=== PATIENT | female | born 1960 | race Caucasian/White ===

== ENCOUNTER 2016-07-13 17:03 | Emergency (ER) | payer MEDICARE, MEDICAID ==
[~2016-07-13] VITALS: Ht 175.3 cm; Wt 110.0 kg
[~2016-07-13 17:03] MED LIST: ASP81TEC PO; CALC-323 PO; CETI10CA PO; DOCU-42 PO; DULO60CA42 PO; ERGO500013 PO; FEXO-46 PO; FURO20TA PO; GABA300C PO; GABA300C6 PO; HYDR1TAB91 PO; INSLEVPEN SUBQ; INSU100I SUBQ; INSU100I12 SQ; KETO15CR TOP; LORA-303 PO; LURA40TA PO; METF-488 PO; NORT50CA PO; OMEP20TA86 PO; POTA10TA12 PO; PRE20 PO; REM15 PO; TPR100T PO; ZOC20 PO; [UNRECOGNIZED DRUG - CODE] IH
[2016-07-13 17:10] VITALS: BP 109/79; PULSE 94; RESP 16; O2SAT 94
--- NOTE | 2016-07-13 18:37 | ED.REPORT ---
HPI-Abd Pain F 40 and Over Date of Service Jul 13, 2016 ED Provider: Chris Medel DO Patient is a 56 year old female with a history of multiple sclerosis, COPD on home O2, diabetes mellitus with neuropathy, hypertension, kidney stones, and recurrent UTIs who presents to the ED complaining of left sided back pain that began this morning. The patient states that the pain radiates to her lower abdomen. Patient also reports that her legs are numb, tingling, and "feel like rubber". She is unsure if this is due to her neuropathy or MS. Patient states that she incontinent of urine in the ED, stating that she wears diapers. Patient presented to the ED from Urgent Care this morning due to concern for pyelonephritis. However, the patient left the ED after providing a urine sample because she needed to feed her dogs. She was contacted by RUDDY Avery and told to present to the ED due to possible pyelonephritis, as her urine was positive for a UTI. Patient has been on antibiotics for the past 2 weeks for an ongoing bladder infection. She reports mild diarrhea but denies nausea, vomiting, dysuria, fever, or chills. Nursing Notes Stated Complaint: ABDOMINAL PAIN Chief Complaint: Female Abdominal Pain Nursing Notes Reviewed: Yes Allergies: Coded Allergies: quetiapine (Verified Allergy, Unknown, 03/12/14) zolpidem tartrate (Verified Allergy, Unknown, 03/12/14) per pt report Scheduled Aspirin-Expunged Drug, Do Not Renew! (Aspirin EC-Expunged Drug, Do Not Renew!) 81 Mg Tablet 81 MG PO DAILY DO NOT CRUSH Calcium Carbonate/D3-Expunged, Do Not Renew! (Oyster Shell 500 Mg/D-Expunged, Do Not Renew!) 1 Each Tablet 1 EACH PO BID Cetirizine-Expunged Drug, Do Not Renew! (Cetirizine-Expunged Drug, Do Not Renew! ) 10 Mg Capsule 10 MG PO DAILY Duloxetine-Expunged Drug, Do Not Renew! (Cymbalta-Expunged Drug, Do Not Renew!) 60 Mg Capsule.dr 60 MG PO HS Ergocalciferol-Expunged Drug, Do Not Renew! (Vitamin D-Expunged Drug, Do Not Renew!) 50,000 Unit Capsule 50,000 UNIT PO QW NOON ON SUNDAYS ONLY Furosemide-Expunged Drug, Do Not Renew! (Lasix-Expunged Drug, Do Not Renew!) 20 Mg Tablet 20 MG PO BID Gabapentin-Expunged Drug, Do Not Renew! (Neurontin-Expunged Drug, Do Not Renew! ) 300 Mg Capsule 900 MG PO AM & HS Gabapentin-Expunged Drug, Do Not Renew! (Gabapentin-Expunged Drug, Do Not Renew! ) 300 Mg Capsule 600 MG PO NOON Hydrocod/APAP-Expunged, Do Not Renew! (Hydrocod/APAP-Expunged, Do Not Renew!) 1 Each Tablet 1 TAB PO PRN For mild-moderate pain. Insulin ASPART-Expunged Drug, Do Not Renew! (Novolog-Expunged Drug, Do Not Renew !) 3 Ml Syringe 40 UNIT SUBQ TIDWM Insulin DETEMIR -Expunged Drug, Do Not Renew! (Levemir-Expunged Drug, Do Not Renew!) 3 Ml Syringe 70 UNIT SUBQ BID Ketoconazole-Expunged Drug, Do Not Renew! (Ketoconazole-Expunged Drug, Do Not Renew!) 15 Gm Cream.gm. 15 GM TOP DAILY Lurasidone-Expunged Drug, Do Not Renew! (Latuda-Expunged Drug, Do Not Renew!) 40 Mg Tablet 40 MG PO PM Metformin-Expunged Drug, Do Not Renew! (Metformin-Expunged Drug, Do Not Renew!) 1,000 Mg Tab.er.24 1,000 MG PO BID Mirtazapine-Expunged Drug, Do Not Renew! (Remeron-Expunged Drug, Do Not Renew!) 15 Mg Tablet 30 MG PO HS Nortriptyline-Expunged Drug, Do Not Renew! (Nortriptyline-Expunged Drug, Do Not Renew!) 50 Mg Capsule 50 MG PO HS Omeprazole-Expunged Drug, Do Not Renew! (Omeprazole-Expunged Drug, Do Not Renew! ) 20 Mg Tablet.dr 20 MG PO AM Potassium Chl-Expunged Drug, Do Not Renew! (Potassium Chl-Expunged Drug, Do Not Renew!) 10 Meq Tablet.er 10 MEQ PO PM PredniSONE-Expunged Drug, Do Not Renew! (PredniSONE-Expunged Drug, Do Not Renew! ) 20 Mg Tab 20 MG PO DAILY Simvastatin-Expunged Drug, Choose New Med! (Simvastatin-Expunged Drug, Choose New Med!) 20 Mg Tablet 20 MG PO PM Topiramate-Expunged Drug, Do Not Renew! (Topiramate-Expunged Drug, Do Not Renew! ) 100 Mg Tab 100 MG PO AM & PM Scheduled PRN Albuterol-Expunged Drug, Do Not Renew! (Albuterol-Expunged Drug, Do Not Renew!) 60 Puff/8 Gm Aero.powd 2 PUFF IH Q4-6H PRN PRN Docusate Sod-Expunged Drug, Do Not Renew! (Docusate Sod-Expunged Drug, Do Not Renew!) 100 Mg Capsule 100 MG PO HS PRN PRN Fexofenadine-Expunged Drug, Choose New Med! (Fexofenadine-Expunged Drug, Choose New Med!) 60 Mg Tablet 60 MG PO DAILY PRN PRN Insulin Aspart-Expunged Drug, Do Not Renew! (Novolog-Expunged Drug, Do Not Renew !) 100 Unit/1 Ml Insuln.pen 0 SQ SS PRN PRN Lorazepam-Expunged Drug, Do Not Renew! (Lorazepam-Expunged Drug, Do Not Renew!) 1 Mg Tablet 1 MG PO TID PRN PRN General Time Seen by MD: 18:35 Chief Complaint Other (left back pain) Hx Obtained From: Patient Arrived By: Walk-in Sudden in Onset?: No Onset Occurred: 9 - 12 hours ago Symptom Duration: Since onset Location: : Flank left Quality: Painful Radiation: : Abdomen lower Severity: Current: Moderate Severity: Maximum: Moderate Recent Healthcare: Recent doctor visit Similar Sx Previous: Yes Past Medical History Past Medical History Notes: PCP: Dr. Newsome Past Medical History Pt on 2L oxygen at home depression bipolar disorder sleep apnea multiple sclerosis recurrent UTIs kidney stones Reports: COPD, Diabetes mellitus, GERD, Hypertension Past Surgical History Reports: Tonsillectomy Smoking History Former Smoker Social History Alcohol Use: Denies alcohol use Drug Use: Denies drug use Other Social History: Lives alone, Local resident Ambulatory Status Independent Review of Systems Constitutional: Denies: Chills, Fever GI: Reports: Abdominal pain, Diarrhea, Denies: Nausea, Vomiting Female: Reports: Flank pain, Incontinence, Denies: Dysuria Musculoskeletal: Reports: Back pain Complete sys rev & neg: except as marked. Physical Exam Vital Signs Vital Signs (First) Date Time Temp Pulse Resp B/P Pulse Ox O2 Delivery O2 Flow Rate FiO2 07/13/16 17:10 37.8 94 16 109/79 94 Room Air Initial VS: Reviewed Head / Eyes: Atraumatic, Normocephalic, PERRL ENT: Mucous membranes moist, Conjunctiva normal, No scleral icterus Neck: Supple, Full range of motion Skin: Warm, Dry, No cyanosis Psychiatric: Mood/affect normal, Behavior normal, Normal thought content General/Constitutional: Awake, Alert Behavior: Positive: Anxious Appearance / Presentation: Positive: Obese Respiratory / Chest: Breath sounds NL, Breath sounds = bilat, No respiratory distress, No rales, No rhonchi, No wheezing Cardiovascular: Heart rate NL, Regular rhythm, Heart sounds NL, No murmurs Abdomen: Soft, Non-tender, No guarding, No rebound, No distention Flank / Spine / Paraspinal: Negative: Flank tender R left sided back tenderness Neurologic: Oriented X3, Speech NL, No motor deficits, CN II - XII intact bilateral leg parasthesias Interpretation & Diagnostics LUMBAR SPINE MRI IMPRESSION: 1. No high-grade spinal canal narrowing. Multilevel neuroforaminal narrowing demonstrated including huhk-wx-vgyvjduk narrowing at L4-5. 2. No definite discrete intramedullary lesions or abnormal enhancement within the visualized cord. 3. Multilevel neuroforaminal narrowing including moderate narrowing on the right at L4-5 and on the left at L5-S1. Dictated by: Kelvin Encarnacion M.D. on 07/13/2016 at 21:46 Approved by: Kelvin Encarnacion M.D. on 07/13/2016 at 21:58 Lab Results Interpretation Result Diagram: 07/13/16 2100 07/13/16 2100 Test 07/13/16 21:00 07/13/16 22:09 White Blood Count 10.7th/mm3 (3.8-10.1) Red Blood Count 4.23mil/mm3 (3.90-5.20) Hemoglobin 11.6g/dL (12.0-15.6) Hematocrit 37.4% (35.0-46.0) Mean Corpuscular Volume 88.4fL (81-100) Mean Corpuscular Hemoglobin 27.4pg (27.0-35.0) Mean Corpuscular Hemoglobin Concent 31.0% (32.0-37.0) Red Cell Distribution Width 15.7% (12.3-15.4) Platelet Count 252bil/L (150-400) Neutrophils (%) (Auto) 63.9% (40-74) Lymphocytes (%) (Auto) 22.7% (14-46) Monocytes (%) (Auto) 9.4% (4-12) Eosinophils (%) (Auto) 3.2% (0-5) Basophils (%) (Auto) 0.7% (0-3) Prothrombin Time 10.0sec (8.1-12.5) Prothromb Time International Ratio 0.94ratio Sodium Level 141mEq/L (134-144) Potassium Level 4.0mEq/L (3.5-5.2) Chloride Level 103mEq/L (97-108) Carbon Dioxide Level 23mmol/L (18-29) Blood Urea Nitrogen 20mg/dL (6-24) Creatinine 0.75mg/dL (0.57-1.00) Estimat Glomerular Filtration Rate 114mL/min (>59) Glucose Level 102mg/dL (60-99) Calcium Level 9.1mg/dL (8.5-10.1) Magnesium Level 2.1mg/dL (1.6-2.6) Total Bilirubin 0.2mg/dL (0.0-1.2) Aspartate Amino Transf (AST/SGOT) 8U/L (0-50) Alanine Aminotransferase (ALT/SGPT) 7U/L (0-32) Alkaline Phosphatase 72U/L (25-150) C-Reactive Protein 1.9mg/dL (0.0-0.5) Total Protein 6.9g/dL (6.4-8.4) Albumin 3.8g/dL (3.4-5.0) Lipase 15U/L (13-60) Lactic Acid Level 0.5mmol/L (0.4-2.0) ECG Interpretation ECG Interpretation: Sinus rhtyhm, Rate 92 RBBB Time: 20:08 Interpreted by: ED physician Normal ECG Interpretation: No acute ischemic changes Re-Eval/Medical Decision Source of Hx: Old records Re-Evaluation/Progress #1: Time of Eval: 19:53 Re-Evaluation/Progress Note: Rechecked the patient to inform her that she will have a MRI of her spine. Discussed the reasoning behind this decision. Patient understands and agrees with this plan. All questions were addressed. Re-Evaluation/Progress #2: Time of Eval: 00:02 Patient Status: Condition improved Re-Evaluation/Progress Note: Rechecked the patient to discuss the results of her MRI. No acute problem found. She should take her Hydrocodone and antibiotics as prescribed. Patient understands and agrees with the plan to be discharged home. Discharge instructions and follow-up discussed. All questions were addressed. Return to the ED warnings given. Counseled Regarding: Diagnosis, Lab results, Need for follow-up, When/why to return to ED Discharge & Departure Primary Impression: Low back pain Chronicity: acute Back pain laterality: left Sciatica presence: with sciatica presence unspecified Qualified Code: M54.5 - Low back pain Additional Impression: Paresthesia of lower limb Disposition: Home Discharge Condition All VS Reviewed: Yes Condition: Stable Patient Instructions: Acute Low Back Pain (ED) Additional Instructions: The MRI of your back did not show any new acute pathology. Do not drive tonight, as you received sedating medications in the emergency department. Continue taking you Hydrocodone as prescribed for pain. Continue taking your antibiotics as prescribed for your UTI. Call your doctor's office tomorrow to schedule a follow-up appointment. Return to the Emergency Department if you any new or worsening symptoms. Referrals: Darrell Newsome MD (PCP) [facility] Attestation Portions of this note were transcribed by Radha Colón. I, Dr. Medel personally performed the history, physical exam and medical decision-making; I reviewed and confirmed the accuracy of the information in the transcribed note. Signed by: Amari Parham, 07/14/2016 0016 copies to: Darrell Newsome MD, Todd P DO Jul 13, 2016 18:36 Radha Colón Jul 13, 2016 19:02
[2016-07-13] MEDS ORDERED: 0.9% Sodium Chloride 1,000 ML IV ONE (19:49)
[2016-07-13] MEDS ORDERED: Ondansetron 2 mg/mL 2 mL Inj IVPUSH PRN (19:50)
[2016-07-13] MEDS ORDERED: HYDROmorphone 0.5 mg/0.5 mL iSecure Syringe IVPUSH PRN (19:50)
[2016-07-13 21:19] LABS: BASOPHILS % (AUTO) 0.7 % (0-3); EOSINOPHILS % (AUTO) 3.2 % (0-5); MONOCYTES % (AUTO) 9.4 % (4-12); Mean Corpuscular Hemoglobin 27.4 pg (27.0-35.0); Mean Corpuscular Volume 88.4 fL (81-100); NEUTROPHILS % (AUTO) 63.9 % (40-74); Platelet Count 252 bil/L (150-400)
[2016-07-13 21:25] LABS: INR 0.94 ratio
[2016-07-13 21:30] LABS: Magnesium 2.1 mg/dL (1.6-2.6)
--- NOTE | 2016-07-13 22:04 | DRSVH ---
PROCEDURE: MRI LUMBAR SPINE WITH AND WITHOUT CONTRAST ([id number]) INDICATIONS: Back pain, leg weakness, urine incontinence, MS TECHNIQUE: Noncontrast sagittal T1 spin echo and T2 fast spin echo, sagittal STIR, axial T1 and T2 fast spin ech o through the lumbar spine. In cases with scoliosis, additional coronal T2 fast spin echo may be per formed. After the administration of contrast, sagittal and axial T1 spin echo with fat saturation th rough the lumbar spine. COMPARISON: [facility], CR, XR LUMBAR SPINE 2 OR 3VW, 05/13/2016, 16:44. FINDINGS: Image quality: There is motion artifact limiting evaluation. Alignment and curvature: There is preserved bony alignment. Marrow: Marrow is of normal overall signal. No acute vertebral body compression fractures. No susp icious marrow enhancement. There is an intraosseous hemangioma within the T11 vertebral body measuri ng up to 2.1 cm. Spinal cord: Conus medullaris terminates at the L2 level. Visualized spinal cord demonstrates trudi l signal, without suspicious enhancement. Paraspinous soft tissues: No paravertebral masses or abnormal enhancement. T11-T12: There is mild disc desiccation with mild loss of disc height and a small disc osteophyte com plex. There is associated minimal spinal canal narrowing and mild left neuroforaminal narrowing. T12-L1: Mild loss of disc height with a small broad-based disc osteophyte complex. There is associat ed bpem-pf-kiorsrqn spinal canal narrowing with minimal right neuroforaminal narrowing. L1-L2: Minimal loss of disc height with a small broad-based disc bulge. There is associated mild spi nal canal narrowing with minimal right neuroforaminal narrowing. L2-L3: There is minimal loss of disc height with a small broad-based disc bulge. There is minimal sp inal canal narrowing with minimal bilateral neuroforaminal narrowing. L4-L5: Mild disc desiccation with a small broad-based disc bulge. There is mild facet arthropathy. The findings contribute to yarw-wr-lyejsafh spinal canal narrowing with moderate right and minimal le ft neuroforaminal narrowing. L5-S1: Mild loss of disc height with a small broad-based disc bulge. There is mild facet arthropathy . No spinal canal narrowing. There is vaei-nb-orpamiir right and moderate left neuroforaminal narro wing. IMPRESSION: 1. No high-grade spinal canal narrowing. Multilevel neuroforaminal narrowing demonstrated including vhab-js-ulnqstcv narrowing at L4-5. 2. No definite discrete intramedullary lesions or abnormal enhancement within the visualized cord. 3. Multilevel neuroforaminal narrowing including moderate narrowing on the right at L4-5 and on the left at L5-S1. Dictated by: Kelvin Encarnacion M.D. on 07/13/2016 at 21:46 Approved by: Kelvin Encarnacion M.D. on 07/13/2016 at 21:58
[2016-07-13 23:28] VITALS: BP 95/67; PULSE 68; RESP 20; O2SAT 95
[2016-07-14 00:23] VITALS: BP 110/62; PULSE 86; RESP 20; O2SAT 97
== END 2016-07-14 00:23 | disposition home or self-care (01) ==
LOC: SED 17:03
DX: M54.5 Low back pain (principal); R20.2 Paresthesia of skin; J44.9 Chronic obstructive pulmonary disease, unspecified; K21.9 Gastro-esophageal reflux disease without esophagitis; I10 Essential (primary) hypertension; E11.40 Type 2 diabetes mellitus with diabetic neuropathy, unspecified; F31.9 Bipolar disorder, unspecified; Z79.4 Long term (current) use of insulin; Z79.82 Long term (current) use of aspirin; Z79.01 Long term (current) use of anticoagulants; Z87.891 Personal history of nicotine dependence; Z88.8 Allergy status to other drugs, medicaments and biological substances
CPT/HCPCS: 36415; 72158; 80053; 83605; 83690; 83735; 85025; 85610; 86140; 93005; 96361; 96374; 96375; 99285; A9585; J1170; J2405; J7030